=== PATIENT | female | born 1985 | race Caucasian/White ===

== ENCOUNTER 2017-08-29 13:37 | Emergency (ER) | payer SELFPAY ==
--- NOTE | 2017-08-29 14:12 | ER Document Report ---
ED Medical Screen (RME) - General Chief Complaint: Skin Problem Stated Complaint: POSSIBLE BUG BITE Time Seen by Provider: 08/29/17 14:08 Mode of Arrival: Ambulatory Information source: Patient Notes: 32-year-old IV and skin popper presents with left foot swelling and rightforearm swelling and redness. pt last used last night I have greeted and performed a rapid initial assessment of this patient. A comprehensive ED assessment and evaluation of the patient, analysis of test results and completion of the medical decision making process will be conducted by additional ED providers. PHYSICAL EXAMINATION: GENERAL: Well-appearing, well-nourished and in no acute distress. HEAD: Atraumatic, normocephalic. EYES: Pupils equal round extraocular movements intact, conjunctiva are normal. ENT: Nares patent NECK: Normal range of motion LUNGS: No respiratory distress Musculoskeletal: Normal range of motion NEUROLOGICAL: Normal speech, normal gait. PSYCH: Normal mood, normal affect. SKIN: left foot swelling cellulitis right forearm abscess TRAVEL OUTSIDE OF THE [place] IN LAST 30 DAYS: No - Related Data Allergies/Adverse Reactions: amoxicillin [Amoxicillin] Allergy (Verified 08/29/17 13:43) Penicillins Allergy (Verified 08/29/17 13:43) Past Medical History - Social History Chew tobacco use (# tins/day): No Frequency of alcohol use: None Drug Abuse: Cocaine Pulmonary Medical History: Reports: Hx Asthma - possible adult onset Renal/ Medical History: Reports: Hx Ovarian Cysts - Polycystic ovaries. Denies: Hx Peritoneal Dialysis Musculoskeltal Medical History: Reports Hx Musculoskeletal Trauma Traumatic Medical History: Reports: Hx Spine Fracture Past Surgical History: Reports: Hx Genitourinary Surgery, Hx Oral Surgery, Hx Tubal Ligation - Immunizations Immunizations up to date: Yes Hx Diphtheria, Pertussis, Tetanus Vaccination: Yes Physical Exam - Vital signs Vitals: Temp Pulse Resp BP Pulse Ox 97.8 F 89 16 142/82 H 100 08/29/17 13:42 08/29/17 13:42 08/29/17 13:42 08/29/17 13:42 08/29/17 13:42 Course - Vital Signs Vital signs: Temp Pulse Resp BP Pulse Ox 97.8 F 89 16 142/82 H 100 08/29/17 13:42 08/29/17 13:42 08/29/17 13:42 08/29/17 13:42 08/29/17 13:42
[2017-08-29] MEDS ORDERED: LIDOCAINE 1% INJ-PF (10 MG/ML) 30 ML SDV INFIL ONE (14:37)
[2017-08-29] MEDS ORDERED: KETOROLAC TROMETHAMINE 60 MG/2 ML SDV IM ONE (14:37)
[2017-08-29] MEDS ORDERED: CEFTRIAXONE INJ 500 MG VIAL IM ONE (14:37)
--- NOTE | 2017-08-29 14:48 | ER Document Report ---
ED Skin Rash/Insect Bite/Abscs - General Chief Complaint: Skin Problem Stated Complaint: POSSIBLE BUG BITE Time Seen by Provider: 08/29/17 14:08 Mode of Arrival: Ambulatory Information source: Patient TRAVEL OUTSIDE OF THE [place] IN LAST 30 DAYS: No - HPI Patient complains to provider of: Skin rash/lesion, Possible insect bite - pt states she was bitten by an insect several days ago on L foot and R FA. Now with swelling an redness in both areas. Denies fever - Related Data Allergies/Adverse Reactions: amoxicillin [Amoxicillin] Allergy (Verified 08/29/17 13:43) Penicillins Allergy (Verified 08/29/17 13:43) Past Medical History - General Information source: Patient - Social History Smoking Status: Current Every Day Smoker Cigarette use (# per day): Yes Chew tobacco use (# tins/day): No Smoking Education Provided: Yes Frequency of alcohol use: None Drug Abuse: Cocaine Family History: Reviewed & Not Pertinent, CAD, CVA, DM, Hyperlipidemia, Hypertension, Malignancy Pulmonary Medical History: Reports: Hx Asthma - possible adult onset Renal/ Medical History: Reports: Hx Ovarian Cysts - Polycystic ovaries. Denies: Hx Peritoneal Dialysis Musculoskeltal Medical History: Reports Hx Musculoskeletal Trauma Traumatic Medical History: Reports: Hx Spine Fracture Past Surgical History: Reports: Hx Genitourinary Surgery, Hx Oral Surgery, Hx Tubal Ligation - Immunizations Immunizations up to date: Yes Hx Diphtheria, Pertussis, Tetanus Vaccination: Yes Review of Systems - Review of Systems Constitutional: No symptoms reported EENT: No symptoms reported Cardiovascular: No symptoms reported Respiratory: No symptoms reported Skin: See HPI, Other -: Yes All other systems reviewed and negative Physical Exam - Vital signs Vitals: Temp Pulse Resp BP Pulse Ox 97.8 F 89 16 142/82 H 100 08/29/17 13:42 08/29/17 13:42 08/29/17 13:42 08/29/17 13:42 08/29/17 13:42 - General General appearance: Appears well In distress: Mild - HEENT Pharynx: Normal Neck: Normal - Respiratory Respiratory status: No respiratory distress Breath sounds: Normal - Cardiovascular Rhythm: Regular Heart sounds: Normal auscultation - Abdominal Inspection: Normal Tenderness: Nontender - Skin Skin Temperature: Warm - there is a 4 by 4 cm area of erythema on the lateral aspect of the L leg. There is a 3 cm area of erythema and warmth on the medial aspect of the R FA. There is FROM; N/V intact Course - Vital Signs Vital signs: Temp Pulse Resp BP Pulse Ox 97.8 F 89 16 142/82 H 100 08/29/17 13:42 08/29/17 13:42 08/29/17 13:42 08/29/17 13:42 08/29/17 13:42 Discharge - Discharge Clinical Impression: Cellulitis Qualifiers: Site of cellulitis: extremity Site of cellulitis of extremity: lower extremity Laterality: left Qualified Code(s): L03.116 - Cellulitis of left lower limb Condition: Stable Disposition: HOME, SELF-CARE Additional Instructions: rest, take meds as prescribed, return if worse Prescriptions: Etodolac [Lodine] 400 mg PO BID #14 tablet Sulfamethoxazole/Trimethoprim [Bactrim Ds Tablet] 1 each PO BID #14 tablet Referrals: HAYDER BURROUGHS MD [ACTIVE STAFF] - Follow up as needed
[2017-08-29 15:36] VITALS: BP 118/74
== END 2017-08-29 15:35 | disposition home or self-care (01) ==
LOC: ER 13:37
DX: L03.116 Cellulitis of left lower limb (principal); M79.89 Other specified soft tissue disorders; Z88.0 Allergy status to penicillin; Z98.51 Tubal ligation status
CPT/HCPCS: 99283; 96372; J1885; J3490; J0696

== ENCOUNTER 2018-02-15 17:29 | Emergency (ER) | payer SELFPAY ==
[2018-02-15] MEDS ORDERED: NORMAL SALINE 1000 ML 1,000 ML IV ONE ×2 (18:37→20:51)
[2018-02-15] MEDS ORDERED: DEXAMETHASONE SOD PHOS INJ 10 MG/1 ML VIAL IV ONE (18:38)
[2018-02-15] MEDS ORDERED: CLINDAMYCIN 600 MG/D5W RTU 600 MG/50 ML RTUPB IV ONE (18:38)
[2018-02-15] MEDS ORDERED: LIDOCAINE 2% INJ-PF (20 MG/ML) 10 ML AMPUL NEB ONE ×2 (18:46→22:38)
--- NOTE | 2018-02-15 19:06 | RADIOLOGY REPORT (SQ) ---
EXAM DESCRIPTION: CHEST SINGLE VIEW COMPLETED DATE/TIME: 02/15/2018 6:48 pm REASON FOR STUDY: sob COMPARISON: None. EXAM PARAMETERS: NUMBER OF VIEWS: One view. TECHNIQUE: Single frontal radiographic view of the chest acquired. RADIATION DOSE: NA LIMITATIONS: None. FINDINGS: LUNGS AND PLEURA: No opacities, masses or pneumothorax. No pleural effusion. MEDIASTINUM AND HILAR STRUCTURES: No masses. Contour normal. HEART AND VASCULAR STRUCTURES: Heart normal in size. Normal vasculature. BONES: No acute findings. HARDWARE: None in the chest. OTHER: No other significant finding. IMPRESSION: NO ACUTE RADIOGRAPHIC FINDING IN THE CHEST. TECHNICAL DOCUMENTATION: JOB ID: [id number] [employer]- All Rights Reserved Reading location - IP/workstation name: [email or web address]
[2018-02-15] MEDS: MORPHINE SULFATE 10 MG/ML INJ IV PRN ×2 (19:08→22:41)
[2018-02-15 19:19] LABS: ABSOLUTE BASOPHILS # (AUTO) 0.1 10^3/uL (0.0-0.2); ABSOLUTE LYMPHOCYTES (AUTO) 1.4 10^3/uL (0.5-4.7); ABSOLUTE NEUT (AUTO) 14.8 10^3/uL (1.7-8.2); BASOPHILS % (AUTO) 0.5 % (0-2); EOSINOPHILS % (AUTO) 0.2 % (0-6); HEMATOCRIT 36.8 % (36.0-47.0); HEMOGLOBIN 11.7 g/dL (12.0-15.5); LYMPHOCYTES % (AUTO) 7.8 % (13-45); MEAN CORPUSCULAR HGB CONC 31.9 g/dL (32.0-36.0); MEAN CORPUSCULAR VOLUME 72 fl (80-97); MONOCYTES % (AUTO) 10.9 % (3-13); PLATELET COUNT 352 10^3/uL (150-450); RED BLOOD COUNT 5.09 10^6/uL (3.72-5.28); RED CELL DISTRIBUTION WIDTH 19.6 % (11.5-14.0); SEGMENTED NEUTROPHILS % (AUTO) 80.6 % (42-78); TOTAL CELLS COUNTED % (AUTO) 100 %; WHITE BLOOD COUNT 18.4 10^3/uL (4.0-10.5)
[2018-02-15 20:16] LABS: ANION GAP 11 (5-19); BLOOD UREA NITROGEN 17 mg/dL (7-20); CALCIUM 9.6 mg/dL (8.4-10.2); CARBON DIOXIDE 19 mmol/L (22-30); CHLORIDE 110 mmol/L (98-107); GLUCOSE 85 mg/dL (75-110); POTASSIUM 4.1 mmol/L (3.6-5.0); SODIUM 140.2 mmol/L (137-145)
--- NOTE | 2018-02-15 20:36 | RADIOLOGY REPORT (SQ) ---
EXAM DESCRIPTION: CT SOFT TISSUE NECK WITH COMPLETED DATE/TIME: 02/15/2018 8:14 pm REASON FOR STUDY: eval retropharyngeal abscess COMPARISON: None. TECHNIQUE: Post IV contrasted scanning from skull base through lung apices with review of bone, soft tissue and lung windows. Reconstructed coronal and sagittal MPR images reviewed. All images stored on PACS. All CT scanners at this facility use dose modulation, iterative reconstruction, and/or weight based d osing when appropriate to reduce radiation dose to as low as reasonably achievable (ALARA). [facility]: Dose Right [facility]: CareDose [facility]: Dose Right [facility]: Teradose 4D [facility]: MyScreen CONTRAST TYPE AND DOSE: contrast/concentration: Isovue 370.00 mg/ml; Total Contrast Delivered: 75.0 ml; Total Saline Delivered: 55.0 ml RENAL FUNCTION: None required. The patient is less than 50 years old. RADIATION DOSE: CT Rad equipment meets quality standard of care and radiation dose reduction techniq ues were employed. CTDIvol: 6.5 mGy. DLP: 206 mGy-cm. . LIMITATIONS: None. FINDINGS: SKULL BASE: Intact. MAJOR SALIVARY GLANDS: No solid or cystic masses. No inflammatory changes. LYMPHADENOPATHY: Right anterior cervical chain lymphadenopathy is present. MUCOSAL MASSES OR ASYMMETRY: A 2.5 x 2.1 x 3.1 cm abscess is seen within the anterior cervical soft t issues posterior to the hyoid bone and extending into the epiglottis. The airway remains patent. LARYNX/CORDS: No abnormal findings. VASCULAR STRUCTURES: The major vessels are patent. LUNG APICES: Clear. BONES: Intact. THYROID: Normal size. No masses. PARANASAL SINUSES: Clear. OTHER: No other significant finding. IMPRESSION: 2.5 x 2.1 x 3.1 cm visceral space abscess with epiglottic thickening. The airway remain s patent. TECHNICAL DOCUMENTATION: JOB ID: [id number] Quality ID # [id number]: Final reports with documentation of one or more dose reduction techniques (e.g., Au tomated exposure control, adjustment of the mA and/or kV according to patient size, use of iterative reconstruction technique) 2010 [employer]- All Rights Reserved Reading location - IP/workstation name: [email or web address]
--- NOTE | 2018-02-15 20:57 | ER Document Report ---
ED General - General Chief Complaint: Difficulty Swallowing Stated Complaint: TROUBLE SWOLLOWING, SORE THROAT Time Seen by Provider: 02/15/18 18:22 Cannot obtain history due to: Other - Difficulty speaking Notes: Patient is a 33-year-old female who presents with 4 days of progressively worsening sore throat and 24 hours of difficulty handling oral secretions. She also reports that over this time period she has been effectively unable to swallow any oral intake. History is limited as each time the patient begins to talk she gags or develops severe pain. She does however report that she is not having any difficulty breathing and has not had any difficulty breathing at any time point since the onset of her symptoms. Nothing seems to improve or worsen her symptoms. Her main complaint is of a severe, constant throbbing pain to her central throat. Nothing improves her pain and it is worsened by attempts at talking or swallowing. She denies any history of similar symptoms in the past. She has not seen her primary care doctor regarding today's concerns. She notes that she has had fever and nausea or diarrhea. TRAVEL OUTSIDE OF THE [place] IN LAST 30 DAYS: No - Related Data Allergies/Adverse Reactions: amoxicillin [Amoxicillin] Allergy (Verified 02/15/18 17:31) Penicillins Allergy (Verified 02/15/18 17:31) Past Medical History - General Information source: Patient - Social History Smoking Status: Current Every Day Smoker Frequency of alcohol use: None Drug Abuse: None Lives with: Family Family History: Reviewed & Not Pertinent, CAD, CVA, DM, Hyperlipidemia, Hypertension, Malignancy Patient has suicidal ideation: No Patient has homicidal ideation: No Pulmonary Medical History: Reports: Hx Asthma - possible adult onset Renal/ Medical History: Reports: Hx Ovarian Cysts - Polycystic ovaries. Denies: Hx Peritoneal Dialysis Musculoskeltal Medical History: Reports Hx Musculoskeletal Trauma Traumatic Medical History: Reports: Hx Spine Fracture Past Surgical History: Reports: Hx Genitourinary Surgery, Hx Oral Surgery, Hx Tubal Ligation - Immunizations Immunizations up to date: Yes Hx Diphtheria, Pertussis, Tetanus Vaccination: Yes Review of Systems - Review of Systems Notes: Constitutional: Positive for fever. HENT: Positive for sore throat. Eyes: Negative for visual changes. Cardiovascular: Negative for chest pain. Respiratory: Negative for shortness of breath. Gastrointestinal: Negative for abdominal pain, positive for nausea Genitourinary: Negative for dysuria. Musculoskeletal: Negative for back pain. Skin: Negative for rash. Neurological: Negative for headaches, weakness or numbness. 10 point ROS negative except as marked above and in HPI. Physical Exam - Vital signs Vitals: Temp Pulse Resp BP Pulse Ox 98.5 F 115 H 18 124/80 98 02/15/18 17:35 02/15/18 17:35 02/15/18 17:35 02/15/18 17:35 02/15/18 17:35 Interpretation: Tachycardic Notes: PHYSICAL EXAMINATION: GENERAL: Appears uncomfortable, mild distress HEAD: Atraumatic, normocephalic. EYES: Pupils equal round and reactive to light, extraocular movements intact, sclera anicteric, conjunctiva are normal. ENT: nares patent, mild by the lateral tonsillar hypertrophy, exudates noted on the right tonsil. Uvula is midline. Patient has a muffled voice. Severe pain on movement of the thyroid cartilage. Dry mucous membranes. NECK: Normal range of motion, bilateral anterior cervical lymphadenopathy LUNGS: Breath sounds clear to auscultation bilaterally and equal. No wheezes rales or rhonchi. HEART: Regular tachycardia without murmurs ABDOMEN: Soft, nontender, normoactive bowel sounds. No guarding, no rebound. No masses appreciated. EXTREMITIES: Normal range of motion, no pitting or edema. No cyanosis. NEUROLOGICAL: No focal neurological deficits. Moves all extremities spontaneously and on command. PSYCH: Moderately anxious SKIN: Warm, Dry, normal turgor, no rashes or lesions noted. Course - Re-evaluation Re-evalutation: 02/15/18 1825 Patient presents by EMS with difficulty swallowing, and has a clear hot potato voice at time of my assessment. Although her airway remains patent patient gags anytime she tries to open her mouth and does have some degree of trismus. She does appear to have significant difficulty tolerating her oral secretions. Exam is also notable for tender anterior cervical lymphadenopathy bilaterally. She has severe pain with movement of the thyroid cartilage. The presentation is extremely worrisome for retropharyngeal abscess. She will require frequent reassessments and given her difficulty handling oral secretions at this time to ensure that she is not having airway compromise. Will obtain a strep test, labs , CT scan of the neck with soft tissue, provide a nebulized lidocaine treatment , IV dexamethasone, IV clindamycin as patient is penicillin allergic, IV fluids , and continue to reassess at regular intervals 1699-patient's pain is improving. She continues to have a patent airway. Continues to have difficulty swallowing oral secretions. Will continue to reassess frequently. 1929-awaiting CT results. Labs do show a prominent leukocytosis, positive strep. She continues to maintain her airway without difficulty. Continues to have difficulty tolerating oral secretions. Remains without any indication for an emergent airway placement. 2049-CT scan does show a neck soft tissue space abscess behind the hyoid bone. This would clinically explain the patient's symptoms. She continues to protect her airway and the airway is noted to be patent on the CT scan. I have contacted [facility] for transfer as we do not have ENT support. Will continue to reassess. 02/15/18 21:53 Airway remains patent. I discussed this case with Dr. Benavides the ENT food preservation scientist at [facility] who has accepted the patient. I have updated the ED physician at [facility] as the ENT doctor has requested a ED to ED transfer. 2299-patient remains clinically unchanged, continues to be in obvious discomfort but continues to maintain a patent airway. Transport will arrive shortly and patient is appropriate for transfer. - Vital Signs Vital signs: Temp Pulse Resp BP Pulse Ox 98.5 F 115 H 14 120/86 H 97 02/15/18 22:00 02/15/18 17:35 02/15/18 23:01 02/15/18 23:00 02/15/18 23:01 - Laboratory Result Diagrams: 02/15/18 18:55 02/15/18 19:25 Laboratory results interpreted by me: 02/15/18 02/15/18 18:55 19:25 WBC 18.4 H Hgb 11.7 L MCV 72 L MCH 23.0 L MCHC 31.9 L RDW 19.6 H Seg Neutrophils % 80.6 H Lymphocytes % 7.8 L Absolute Neutrophils 14.8 H Absolute Monocytes 2.0 H Chloride 110 H Carbon Dioxide 19 L - Diagnostic Test Radiology reviewed: Reports reviewed Critical Care Note - Critical Care Note Total time excluding time spent on procedures (mins): 36 Comments: Critical care time spent obtaining history from patient or surrogate, discussions with consultants, development of treatment plan with patient or surrogate, evaluation of patient's response to treatment, examination of patient , ordering and performing treatments and interventions, ordering and review of laboratory studies, re-evaluation of patient's condition, ordering and review of radiographic studies and review of old charts Discharge - Discharge Clinical Impression: Odynophagia, Neck abscess, Strep pharyngitis Sepsis Qualifiers: Sepsis type: sepsis due to unspecified organism Qualified Code(s): A41.9 - Sepsis, unspecified organism Condition: Serious Disposition: [facility]
[2018-02-15 23:18] VITALS: BP 120/86
== END 2018-02-15 23:19 | disposition short-term general hospital (02) ==
LOC: ER 17:29
DX: A41.9 Sepsis, unspecified organism (principal); J02.0 Streptococcal pharyngitis; L02.11 Cutaneous abscess of neck; R13.10 Dysphagia, unspecified; R00.0 Tachycardia, unspecified; R25.2 Cramp and spasm; F41.9 Anxiety disorder, unspecified; F17.200 Nicotine dependence, unspecified, uncomplicated; Z88.0 Allergy status to penicillin
CPT/HCPCS: 96376; 94640; 99291; 96361; 96375; 96365; 36415; 87040; 87880; 84703; 85025; 80048; 71045; 70491; J2270; J7030; J3490; J1100

== ENCOUNTER 2018-07-20 01:36 | Emergency (ER) | payer SELFPAY ==
[2018-07-20] MEDS ORDERED: HALOPERIDOL LACTATE INJ 5 MG/1 ML VIAL IV ONE (02:15)
[2018-07-20] MEDS ORDERED: KETOROLAC TROMETHAMINE INJ/PF 30 MG/1 ML SDV IV ONE (02:16)
[2018-07-20] MEDS ORDERED: LIDOCAINE 5% (700 MG) TRANSDERMAL ADH..PATCH TP ONE (02:16)
--- NOTE | 2018-07-20 02:18 | ER Document Report ---
ED General <IRENE OLEARY - Last Filed: 07/20/18 05:23> - General TRAVEL OUTSIDE OF THE [place] IN LAST 30 DAYS: No <GREG QUINTANILLA - Last Filed: 07/21/18 03:17> - General Chief Complaint: Abdominal Pain Stated Complaint: ABDOMINAL PAIN Time Seen by Provider: 07/20/18 02:03 Notes: Patient is a 33-year-old white female with a past medical history of opiate abuse who presents with acute onset of left lower rib pain approximately 1 hour prior to arrival. The patient is complaining of a severe, throbbing, stabbing pain to the left lower rib space. She states that this pain started abruptly and has been ongoing since that time. She states that she has associated shortness of breath and at the pain is worsened by taking a deep breath. She denies any history of DVT or pulmonary embolus. She does not use any form of control. She denies any focal abdominal pain contrary to triage assessment. No vomiting or diarrhea. No dysuria or hematuria. No history of similar symptoms in the past. Nothing has improved her symptoms since onset. ( GREG QUINTANILLA) - Related Data Allergies/Adverse Reactions: amoxicillin [Amoxicillin] Allergy (Verified 02/15/18 17:31) Penicillins Allergy (Verified 02/15/18 17:31) Past Medical History - General Information source: Patient - Social History Smoking Status: Current Every Day Smoker Chew tobacco use (# tins/day): No Frequency of alcohol use: None Drug Abuse: Heroin, Marijuana Lives with: Spouse/Significant other Family History: Reviewed & Not Pertinent, CAD, CVA, DM, Hyperlipidemia, Hypertension, Malignancy Patient has suicidal ideation: No Patient has homicidal ideation: No Pulmonary Medical History: Reports: Hx Asthma - possible adult onset Renal/ Medical History: Reports: Hx Ovarian Cysts - Polycystic ovaries. Denies: Hx Peritoneal Dialysis Musculoskeletal Medical History: Reports Hx Musculoskeletal Trauma Traumatic Medical History: Reports: Hx Spine Fracture Past Surgical History: Reports: Hx Genitourinary Surgery, Hx Oral Surgery, Hx Tubal Ligation - Immunizations Immunizations up to date: Yes Hx Diphtheria, Pertussis, Tetanus Vaccination: Yes <GREG QUINTANILLA - Last Filed: 07/21/18 03:17> Review of Systems <IRENE OLEARY - Last Filed: 07/20/18 05:23> <GREG QUINTANILLA - Last Filed: 07/21/18 03:17> - Review of Systems Notes: Constitutional: Negative for fever. HENT: Negative for sore throat. Eyes: Negative for visual changes. Cardiovascular: Negative for chest pain. Respiratory: Positive for shortness of breath. Gastrointestinal: Negative for abdominal pain, vomiting or diarrhea. Genitourinary: Negative for dysuria. Musculoskeletal: Positive for left lower rib pain Skin: Negative for rash. Neurological: Negative for headaches, weakness or numbness. 10 point ROS negative except as marked above and in HPI. (GREG QUINTANILLA) Physical Exam <IRENE OLEARY - Last Filed: 07/20/18 05:23> - Vital signs Interpretation: Tachycardic <GREG QUINTANILLA - Last Filed: 07/21/18 03:17> - Vital signs Vitals: Temp Pulse Resp BP Pulse Ox 98.8 F 109 H 20 119/67 100 07/20/18 02:10 07/20/18 02:10 07/20/18 02:10 07/20/18 02:10 07/20/18 02:10 Notes: PHYSICAL EXAMINATION: GENERAL: Appears to be uncomfortable, crying out in pain HEAD: Atraumatic, normocephalic. EYES: Pupils equal round and reactive to light, extraocular movements intact, sclera anicteric, conjunctiva are normal. ENT: nares patent, oropharynx clear without exudates. Moderately dry mucous membranes. NECK: Normal range of motion, supple without lymphadenopathy LUNGS: Breath sounds clear to auscultation bilaterally and equal. No wheezes rales or rhonchi. HEART: Regular tachycardia without murmurs Chest wall: No reproduction of pain on palpation of the right lower rib spaces ABDOMEN: Soft, nontender, normoactive bowel sounds. No guarding, no rebound. No masses appreciated. EXTREMITIES: Normal range of motion, no pitting or edema. No cyanosis. NEUROLOGICAL: No focal neurological deficits. Moves all extremities spontaneously and on command. PSYCH: Highly anxious, tearful SKIN: Warm, Dry, normal turgor, diffuse scabbed lesions over almost the entirety of the patient's body. Multiple track bhardwaj. (GREG QUINTANILLA) Course - Laboratory Result Diagrams: 07/20/18 02:20 07/20/18 02:50 <IRENE OLEARY - Last Filed: 07/20/18 05:23> - Laboratory Result Diagrams: 07/20/18 02:20 07/20/18 02:50 - Diagnostic Test Radiology reviewed: Image reviewed, Reports reviewed <GREG QUINTANILLA - Last Filed: 07/21/18 03:17> - Re-evaluation Re-evalutation: 07/20/18 05:[address] to have CTA of chest done to rule out a pulmonary embolus. The patient's IV infiltrated. She is refusing to have another IV placed and states that she just wants to leave. Offered VQ scan but refused. Patient has been quite rude to nursing staff. She will be discharged home with instructions of following up with a primary care physician and she is to return immediately if she has any further concerns or would like further evaluation of her symptoms. Refused to sign AMA. No acute distress at time of d/c. Prescription written for Ferrous sulfate for anemia, likely due to iron deficiency. (IRENE OLEARY) 07/20/18 02:17 Patient presents with left lower rib pain worsened with breathing has been ongoing for approximately past 1 hour. The patient is extremely tearful, unable to sit still, appears to be having an associated anxiety attack as she is hyperventilating. The patient does not have any reproduction of pain on palpation of the left lower ribs. She has no pain on palpation of the entirety of the abdomen contrary to triage assessment as she denies abdominal pain stating that the pain is located to her left lower rib and left flank region. She denies a history of similar symptoms in the past. Considerations include pyelonephritis, nephrolithiasis,acute pulmonary embolus, pneumothorax, rib fractures. Will obtain labs, x-ray and reassess the patient. 07/20/18 03:46 D-dimer is elevated. CT of the chest will be obtained given the patient's location of pain and pleuritic pain. Labs are notable only for anemia which does not appear chronic although this appears to be unrelated to the patient's presentation today. 07/20/18 04:27 I have discussed this case with the night ED physician who will follow-up on the care of this patient and the CTA of the chest. (GREG QUINTANILLA) - Vital Signs Vital signs: Temp Pulse Resp BP Pulse Ox 98.2 F 71 18 95/55 L 97 07/20/18 05:00 07/20/18 05:00 07/20/18 05:00 07/20/18 05:00 07/20/18 05:00 - Laboratory Laboratory results interpreted by me: 07/20/18 07/20/18 07/20/18 02:20 02:50 02:50 Hgb 8.6 L Hct 26.7 L MCV 68 L MCH 21.8 L RDW 16.9 H D-Dimer 1.28 H Albumin 3.4 L - Diagnostic Test Radiology results interpreted by me: 07/20/18 03:20 Chest x-ray: No acute infiltrate or pneumothorax (GREG QUINTANILLA) Discharge <IRENE OLEARY - Last Filed: 07/20/18 05:23> <GREG QUINTANILLA - Last Filed: 07/21/18 03:17> - Discharge Clinical Impression: Anemia Qualifiers: Anemia type: unspecified type Qualified Code(s): D64.9 - Anemia, unspecified Chest pain Qualifiers: Chest pain type: unspecified Qualified Code(s): R07.9 - Chest pain, unspecified Condition: Stable Disposition: AGAINST MEDICAL ADVICE Instructions: Anemia, Iron Deficiency ([facility]), Chest Pain of Unclear Cause ([facility]) , Family Physicians / Practices Additional Instructions: Please follow-up with a primary care doctor as soon as possible. We were concerned tonight about a blood clot in your lungs. You have opted not to pursue looking for a dangerous cause for your chest pain. You are free to return at any time for further evaluation. Please take Ferrous sulfate for anemia which was found tonight,likely due to iron deficiency. Prescriptions: Ferrous Sulfate 325 mg PO DAILY #60 tablet
[2018-07-20 02:29] LABS: ABSOLUTE BASOPHILS # (AUTO) 0.1 10^3/uL (0.0-0.2); ABSOLUTE EOSINOPHILS # (AUTO) 0.2 10^3/uL (0.0-0.6); ABSOLUTE LYMPHOCYTES (AUTO) 1.7 10^3/uL (0.5-4.7); ABSOLUTE MONOCYTES (AUTO) 0.9 10^3/uL (0.1-1.4); ABSOLUTE NEUT (AUTO) 5.9 10^3/uL (1.7-8.2); BASOPHILS % (AUTO) 0.9 % (0-2); HEMATOCRIT 26.7 % (36.0-47.0); HEMOGLOBIN 8.6 g/dL (12.0-15.5); LYMPHOCYTES % (AUTO) 19.3 % (13-45); MEAN CORPUSCULAR HEMOGLOBIN 21.8 pg (27.0-33.4); MEAN CORPUSCULAR HGB CONC 32.2 g/dL (32.0-36.0); MEAN CORPUSCULAR VOLUME 68 fl (80-97); MONOCYTES % (AUTO) 10.1 % (3-13); PLATELET COUNT 389 10^3/uL (150-450); RED BLOOD COUNT 3.94 10^6/uL (3.72-5.28); RED CELL DISTRIBUTION WIDTH 16.9 % (11.5-14.0); SEGMENTED NEUTROPHILS % (AUTO) 67.7 % (42-78); TOTAL CELLS COUNTED % (AUTO) 100 %; WHITE BLOOD COUNT 8.7 10^3/uL (4.0-10.5)
--- NOTE | 2018-07-20 02:44 | RADIOLOGY REPORT (SQ) ---
EXAM DESCRIPTION: XR CHEST 1 VIEW COMPLETED DATE/TME: 07/20/2018 02:15 CLINICAL HISTORY: cp, sob COMPARISON: 02/15/2018 FINDINGS: Single frontal view of the chest. The cardiomediastinal silhouette has normal size and contour. No consolidation, pneumothorax, or pleural effusion. No displaced rib fractures identified. Upper abdominal soft tissues are unremarkable. IMPRESSION: 1. No acute pulmonary process identified.
[2018-07-20 03:21] LABS: ALANINE AMINOTRANSFERASE 16 U/L (9-52); ALBUMIN 3.4 g/dL (3.5-5.0); ALKALINE PHOSPHATASE 72 U/L (38-126); ANION GAP 11 (5-19); ASPARTATE AMINO TRANSFERASE 19 U/L (14-36); BILIRUBIN,DIRECT 0.3 mg/dL (0.0-0.4); BILIRUBIN,TOTAL 0.3 mg/dL (0.2-1.3); BLOOD UREA NITROGEN 8 mg/dL (7-20); CALCIUM 8.7 mg/dL (8.4-10.2); CARBON DIOXIDE 24 mmol/L (22-30); CHLORIDE 105 mmol/L (98-107); GLUCOSE 101 mg/dL (75-110); LIPASE 95.2 U/L (23-300); POTASSIUM 3.7 mmol/L (3.6-5.0); SODIUM 139.8 mmol/L (137-145); TOTAL PROTEIN 7.2 g/dL (6.3-8.2)
[2018-07-20 05:01] VITALS: BP 95/55
== END 2018-07-20 05:00 | disposition left against medical advice (07) ==
LOC: ER 01:36
DX: R07.81 Pleurodynia (principal); D64.9 Anemia, unspecified; R79.1 Abnormal coagulation profile; R06.02 Shortness of breath; F17.200 Nicotine dependence, unspecified, uncomplicated; F12.10 Cannabis abuse, uncomplicated; F11.10 Opioid abuse, uncomplicated; F41.9 Anxiety disorder, unspecified; R00.0 Tachycardia, unspecified; R23.4 Changes in skin texture; Z88.0 Allergy status to penicillin; Z82.49 Family history of ischemic heart disease and other diseases of the circulatory system
CPT/HCPCS: 99284; 96374; 96375; 36415; 84702; 83690; 85025; 80053; 85379; 71045; J1630; J1885